=== PATIENT | female | born 1965 | race Caucasian/White ===

== ENCOUNTER → 2019-02-01 | Outpatient (REF) | payer BC | LOC: M SFHCLERA 10:39 | PROVIDERS: ATTEND Nurse Practitioner Family | DX: L02.91 Cutaneous abscess, unspecified (principal) ==

== ENCOUNTER 2023-09-12 09:15 | Emergency (ER) | payer BC, OTHER ==
[~2023-09-12] VITALS: Ht 160 cm; Wt 80.7 kg
[~2023-09-12 09:15] MED LIST: AMLO1TAB24; ATOR1TAB21; AZEL0.055; BISO1TAB19; CVS1CAP2 PO; FOSI40TA59; HYDR-3713; LEVO100T5; PARO40TA2; PARO5TAB; PRED20TA PO
[2023-09-12 10:22] LABS: BASO # 0.1 10^3/uL (0.0-0.2); BASO % 0.7 % (0.0-1.0); EOS # 0.2 10^3/uL (0.0-0.5); EOS % 3.2 % (0.0-3.0); HEMATOCRIT 38.9 % (36.0-47.0); HEMOGLOBIN 13.2 g/dl (12.0-15.5); LYMPH # 1.6 10^3/uL (1.5-5.0); LYMPH % 22.9 % (24.0-44.0); MEAN CORPUSCULAR HGB CONC 33.9 g/dl (32.0-36.5); MEAN CORPUSCULAR VOLUME 94.4 fl (80.0-96.0); MONO # 0.5 10^3/uL (0.0-0.8); MONO % 7.2 % (2.0-8.0); NEUTROPHILS # 4.7 10^3/uL (1.5-8.5); NEUTROPHILS % 65.7 % (36.0-66.0); PLATELET COUNT, AUTOMATED 217 10^3/uL (150-450); RED BLOOD COUNT 4.12 10^6/uL (4.00-5.40); WHITE BLOOD COUNT 7.1 10^3/uL (4.0-10.0)
[2023-09-12 10:28] LABS: CK-MB VALUE MASS < 1.0 NG/ML (<3.6)
[2023-09-12 10:29] LABS: BLOOD UREA NITROGEN 15 MG/DL (9-23); CALCIUM LEVEL 9.6 MG/DL (8.3-10.6); CARBON DIOXIDE LEVEL 30 MMOL/L (20-31); CHLORIDE LEVEL 104 MMOL/L (98-107); GLOMERULAR FILTRATION RATE > 60.0 (>45); GLUCOSE, FASTING 111 MG/DL (74-106); POTASSIUM SERUM 4.3 MMOL/L (3.5-5.1); SODIUM LEVEL 139 MMOL/L (136-145)
[2023-09-12 10:46] LABS: CPK CREATINE PHOSPHOKINASE 63 U/L (34-145); MB/CK RELATIVE INDEX 1.58 (< OR =4)
[2023-09-12 11:18] LABS: CK-MB VALUE MASS < 1.0 NG/ML (<3.6)
[2023-09-12 11:19] LABS: CPK CREATINE PHOSPHOKINASE 76 U/L (34-145); MB/CK RELATIVE INDEX 1.31 (< OR =4)
[2023-09-12] MEDS ORDERED: ISOVUE-370 76% 100ML VIAL As Ordered ONE (12:14)
[2023-09-12] MEDS: ASPIRIN 81MG CHEW TABLET PO ONE (12:14)
[2023-09-12] MEDS: NITROGLYCERIN 0.4MG SUBL TABLET SL PRN (12:16)
[2023-09-12 13:26] LABS: RSV AMPLIFICATION NEGATIVE (NEGATIVE)
[2023-09-12] MEDS: hydrALAZINE 20MG/ML 1ML VIAL IV STA (13:37)
[2023-09-12 13:39] VITALS: BP 195/77
[2023-09-12] MEDS: NITROGLYCERIN 2% OINT 1 GM *U/D* PKT TOP ONE (13:39)
[2023-09-12 15:21] VITALS: BP 168/78; TEMP 97.6; O2SAT 96
[2023-09-13] MEDS ORDERED: NITROGLYCERIN 0.4 MG/HR PATCH TD SCH (09:00)
== END 2023-09-12 15:24 | disposition short-term general hospital (02) ==
LOC: M ED 09:15
DX: I20.0 Unstable angina (principal); I16.0 Hypertensive urgency; R00.1 Bradycardia, unspecified; I10 Essential (primary) hypertension; E78.5 Hyperlipidemia, unspecified; E03.9 Hypothyroidism, unspecified; N80.9 Endometriosis, unspecified; Z87.891 Personal history of nicotine dependence; Z79.02 Long term (current) use of antithrombotics/antiplatelets; Z79.811 Long term (current) use of aromatase inhibitors; Z79.52 Long term (current) use of systemic steroids; Z79.899 Other long term (current) drug therapy
CPT/HCPCS: 36415; 71045; 71275; 80048; 82550; 82553; 84484; 85025; 87631; 93005; 93041; 94760; 96374; 99291; J0360; Q9967

== ENCOUNTER 2023-09-22 10:00 | Emergency (ER) | payer BC ==
[~2023-09-22] VITALS: Ht 160 cm; Wt 76.9 kg
[2023-09-22] MEDS ORDERED: CARV6.25 (10:18)
[2023-09-22] MEDS ORDERED: LISI40TA4 (10:18)
[2023-09-22] MEDS ORDERED: HYDR25TA87 (10:18)
[2023-09-22] MEDS ORDERED: HYDR-3490 (10:18)
[2023-09-22] MEDS ORDERED: SPIR50TA4 (10:18)
[2023-09-22] MEDS ORDERED: AMLO1TAB25 (10:18)
[2023-09-22] MEDS ORDERED: BUPR150T12 (10:18)
[2023-09-22 12:48] LABS: BASO % 0.3 % (0.0-1.0); EOS # 0.2 10^3/uL (0.0-0.5); EOS % 1.7 % (0.0-3.0); HEMATOCRIT 44.2 % (36.0-47.0); HEMOGLOBIN 15.1 g/dl (12.0-15.5); LYMPH # 2.2 10^3/uL (1.5-5.0); LYMPH % 19.3 % (24.0-44.0); MEAN CORPUSCULAR HEMOGLOBIN 31.6 pg (27.0-33.0); MEAN CORPUSCULAR HGB CONC 34.2 g/dl (32.0-36.5); MEAN CORPUSCULAR VOLUME 92.5 fl (80.0-96.0); MONO # 0.8 10^3/uL (0.0-0.8); MONO % 7.2 % (2.0-8.0); NEUTROPHILS # 8.2 10^3/uL (1.5-8.5); NEUTROPHILS % 71.2 % (36.0-66.0); PLATELET COUNT, AUTOMATED 345 10^3/uL (150-450); RED BLOOD COUNT 4.78 10^6/uL (4.00-5.40); WHITE BLOOD COUNT 11.6 10^3/uL (4.0-10.0)
[2023-09-22 13:04] LABS: INR 0.98; PARTIAL THROMBOPLASTIN TIME 30.8 SECONDS (24.8-34.2); PROTHROMBIN TIME 12.7 SECONDS (12.5-14.5)
[2023-09-22 13:07] LABS: LIPASE 37 U/L (12-53)
[2023-09-22 13:09] LABS: ALBUMIN 4.5 G/DL (3.2-5.2); ALKALINE PHOSPHATASE 102 U/L (46-116); ALT/SGPT 19 U/L (7.0-40); AST/SGOT 18 U/L (<34); BILIRUBIN,DIRECT 0.1 MG/DL (<0.4); BILIRUBIN,TOTAL 0.3 MG/DL (0.3-1.2); BLOOD UREA NITROGEN 22 MG/DL (9-23); CALCIUM LEVEL 11.2 MG/DL (8.3-10.6); CARBON DIOXIDE LEVEL 26 MMOL/L (20-31); CHLORIDE LEVEL 98 MMOL/L (98-107); CK-MB VALUE MASS < 1.0 NG/ML (<3.6); CREATININE FOR GFR 0.98 MG/DL (0.55-1.30); GLOMERULAR FILTRATION RATE > 60.0 (>45); GLUCOSE, FASTING 119 MG/DL (74-106); POTASSIUM SERUM 4.6 MMOL/L (3.5-5.1); SODIUM LEVEL 131 MMOL/L (136-145); TOTAL PROTEIN 7.5 G/DL (5.7-8.2)
[2023-09-22 13:11] LABS: FREE T4 1.34 NG/DL (0.89-1.76); THYROID STIMULATING HORMONE 1.433 uIU/ML (0.55-4.78)
[2023-09-22 13:12] LABS: CPK CREATINE PHOSPHOKINASE 72 U/L (34-145); MB/CK RELATIVE INDEX 1.38 (< OR =4)
[2023-09-22 13:33] VITALS: BP 170/76
[2023-09-22] MEDS: ASPIRIN 81MG CHEW TABLET PO ONE (13:33)
[2023-09-22] MEDS: NITROGLYCERIN 0.4MG SUBL TABLET SL PRN (13:33)
[2023-09-22] MEDS ORDERED: ISOVUE-370 76% 100ML VIAL As Ordered ONE (13:33)
[2023-09-22] MEDS: **hydrALAZINE HCL** 25 MG TAB PO ONE (13:33)
[2023-09-22 14:11] LABS: CK-MB VALUE MASS < 1.0 NG/ML (<3.6)
[2023-09-22 14:25] LABS: CPK CREATINE PHOSPHOKINASE 59 U/L (34-145); MB/CK RELATIVE INDEX 1.69 (< OR =4)
[2023-09-22 16:05] LABS: CK-MB VALUE MASS < 1.0 NG/ML (<3.6)
[2023-09-22 16:06] LABS: CPK CREATINE PHOSPHOKINASE 53 U/L (34-145); MB/CK RELATIVE INDEX 1.88 (< OR =4)
[2023-09-22 17:31] VITALS: BP 139/73; TEMP 97.3; O2SAT 97
== END 2023-09-22 17:35 | disposition home or self-care (01) ==
LOC: M ED 10:00
DX: I10 Essential (primary) hypertension (principal); I45.81 Long QT syndrome; E78.5 Hyperlipidemia, unspecified; E03.9 Hypothyroidism, unspecified; F41.9 Anxiety disorder, unspecified; N80.9 Endometriosis, unspecified; Z87.891 Personal history of nicotine dependence; Z79.811 Long term (current) use of aromatase inhibitors; Z79.899 Other long term (current) drug therapy
CPT/HCPCS: 36415; 71045; 71275; 80048; 80076; 82550; 82553; 83690; 83880; 84439; 84443; 84484; 85025; 85610; 85730; 87486; 87581; 87633; 87798; 93005; 93041; 94760; 99285; Q9967